=== PATIENT | female | born 2000 | race African-American/Black ===

== ENCOUNTER 2019-03-31 11:45 | Emergency (ER) | payer MEDICAID, SELFPAY ==
[2019-03-31 11:45] VITALS: BP 169/81; PULSE 98; RESP 22; TEMP 36.9; O2SAT 98; BMI 56.0
--- NOTE | 2019-03-31 12:34 | ED.VIS.GEN ---
History of Present Illness Informant: Patient Narrative: 18-year-old female with a history of hypertension diabetes presents with right middle toe pain and swelling. States that is been going on for the last 2 to 3 days. Became worse this morning. States that she was picking at her toenails over the last couple of days. Denies any fever nausea vomiting. <VíctorMathieu - Last Filed: 03/31/19 12:44> Onset: Days Context: Gradual Onset Timing: Continuous Prior similar symptoms: No <AllisonNicki - Last Filed: 04/06/19 11:43> Chief Complaint: Wound Past Medical History Smoking Status: Never smoker <VíctorMathieu - Last Filed: 03/31/19 12:44> Past Medical History: - - DM, HTN Surgical History: noncontributory <Nicki Al - Last Filed: 04/06/19 11:43> - Allergies and Home Meds Allergies/Adverse Reactions: Allergies No Known Allergies Allergy (Verified 03/31/19 11:47) Primary Care Physician: Deni Jovel MD [STAFF PHYSICIAN] - 3-5 Days if not improving [facility] Doctor,Out of [NON-STAFF] - Review of Systems General: Denies: Chills, Fever Musculoskeletal: Reports: - - Right middle toe pain Skin: Reports: Rash, Wounds <VíctorMathieu - Last Filed: 03/31/19 12:44> Gastrointestinal: Denies: Nausea, Vomiting Neurological: Denies: Weakness, Numbness Endocrine: Denies: Polyuria, Polydipsia <Nicki Al - Last Filed: 04/06/19 11:43> Physical Exam Vital Signs/Narrative: Vital Signs Temp Pulse Resp BP Pulse Ox 03/31/19 11:45 98.4 F 98 22 H 169/81 H 98 General: Well nourished, Well developed, No Acute Distress Head: Normocephalic, Atraumatic Eyes: Perrl, EOMI Cardiovascular: Regular rate, Regular rhythm, No murmurs Respiratory: No distress, CTA bilaterally, Chest nontender Abdomen: Soft, Nontender, Nondistended, Normal bowel sounds Extremities: - - Patient has erythema and tenderness to the medial aspect of the right middle toe. Appears to have an ingrown toenail. Pressure applied purulent drainage does come out. Small amount of surrounding erythema. Skin: Normal color, No rash Neurological: Alert, Oriented x3, Cranial nerves II-XII grossly intact, Normal Strength, Normal Sensation Psychological: Normal affect, Normal Mood <Mathieu Renee - Last Filed: 03/31/19 12:44> General: Obese Extremities: - Skin: Rash - erythem or right 3rd toe and associated paronychia <Nicki Al - Last Filed: 04/06/19 11:43> Diagnostic/Tx/Re-eval - Medical Decision Making Was evaluated for toe pain. Appears to have an ingrown toenail with some purulent drainage and surrounding erythema. Toe cleaned with Betadine. Suture scissors used to remove a small portion of the medial aspect of the patient's toenail. Tolerated procedure well Will be given Keflex for home. Podiatry referral. Instructed to use warm soapy soaks. Patient was in agreement the plan and discharged home. <Mathieu Renee - Last Filed: 03/31/19 12:44> - Medical Decision Making Patient evaluated by myself independent of resident and HPI and ROS performed separately. Agree with above. Patient has 2-3 days of worsening right middle toe pain and redness. Admits to picking at it and then it worsened. No fever or other systemic symptoms. Appears to be an infected ingrown toenail. Small paronychia present that drains spontaneously with palpation. Dr. Renee cut away part of nail. See above. Patient started on Keflex. She is well appearing and currently infection appears mild. I believe she is a good candidate for outpatient treatment and follow up. Counseled on signs and symptoms requiring return to the ED. Counseled on importance of outpatient follow up. Patient verbalized agreement and understanding with this plan and was discharged home in stable and improved condition. <Nicki Al - Last Filed: 04/06/19 11:43> ED Disposition <Mathieu Renee - Last Filed: 03/31/19 12:44> <Nicki Al - Last Filed: 04/06/19 11:43> - Plan for ED Patient: Disposition: Home or Assisted Living Diagnosis: Ingrown nail, Ingrown toenail of right foot with infection Instructions: INGROWN TOENAIL, Infected (Abx Only) Prescriptions: Cephalexin [Keflex] 500 mg PO Q6 #40 cap Prescription Printed Referrals: [facility] [place] Doctor,Out of [NON-STAFF] - Deni Jovel MD [STAFF PHYSICIAN] - 3-5 Days if not improving
== END 2019-03-31 13:10 | disposition home or self-care (01) ==
PROVIDERS: Emergency Provider Emergency Medicine
DX: L60.0 Ingrowing nail (principal); I10 Essential (primary) hypertension; E11.9 Type 2 diabetes mellitus without complications
CPT/HCPCS: 99282